=== PATIENT | female | born 1955 | race Caucasian/White ===

== ENCOUNTER 2020-07-31 21:35 | Emergency (ER) | payer OTHER ==
[~2020-07-31] VITALS: Ht 172.7 cm; Wt 72.6 kg
[2020-07-31 22:14] LABS: Source, Urine Clean Catch
[2020-07-31 22:17] LABS: BASOPHILS ABSOLUTE AUTO 0.06 K/mm3 (0.00-0.23); BASOPHILS PERCENT AUTO 1 % (0-2); Bilirubin, Urine Neg (Neg); Blood, Urine 4+ (Neg); EOSINOPHILS ABSOLUTE AUTO 0.32 K/mm3 (0.00-0.68); EOSINOPHILS PERCENT AUTO 4 % (0-6); Glucose Qualitative, Urine Neg (Neg); Hematocrit 39.3 % (33.0-51.0); Hemoglobin 12.9 g/dL (11.5-16.0); IMMATURE GRAN ABSOLUTE AUTO 0.02 K/mm3 (0.00-0.10); IMMATURE GRAN PERCENT AUTO 0 % (0-1); Ketones, Urine Neg (Neg); LYMPHOCYTES ABSOLUTE AUTO 2.68 K/mm3 (0.84-5.20); LYMPHOCYTES PERCENT AUTO 30 % (21-46); Leukocyte Esterase, Urine 1+ (Neg); MONOCYTES ABSOLUTE AUTO 0.84 K/mm3 (0.16-1.47); MONOCYTES PERCENT AUTO 10 % (4-13); Mean Corpuscular HGB 27.7 pg (26.0-34.0); Mean Corpuscular HGB Conc 32.8 g/dL (31.5-36.5); Mean Corpuscular Volume 84 fL (80-100); Mean Platelet Volume 9.4 fL (9.1-12.4); NEUTROPHILS ABSOLUTE AUTO 4.91 K/mm3 (1.96-9.15); NEUTROPHILS PERCENT AUTO 56 % (41-73); Nitrite, Urine Neg (Neg); Platelet Count 284 K/mm3 (150-400); Protein, Urine Neg (Neg); RDW Coefficient Variation 12.3 % (11.7-14.2); RDW Standard Deviation 37.6 fL (35.1-46.3); Red Blood Cell Count 4.66 M/mm3 (3.80-5.20); Urobilinogen, Urine NORM (Normal); White Blood Cell Count 8.83 K/mm3 (4.00-11.30)
[2020-07-31 22:21] LABS: Appearance, Urine Clear (Clear); Color, Urine Yellow (P-Yellow)
[2020-07-31 22:22] LABS: Bacteria Few /hpf; Red Blood Cells, Urine 0-2 /hpf (0-2); Squamous Epithelial Cells Few /hpf (Few)
[2020-07-31 22:36] LABS: Alanine Aminotransfer (ALT/SGP 29 U/L (12-78); Albumin, Blood 4.1 g/dL (3.4-5.0); Albumin/Globulin Ratio 1.4 (0.8-1.8); Alk Phos 96 U/L (50-136); Anion Gap 5 mmol/L (6-16); Aspartate Aminotrans (AST/SGOT 22 U/L (12-37); Bilirubin, Total 0.3 mg/dL (0.1-1.0); Blood Urea Nitrogen 18 mg/dL (8-24); Bun/Creatinine Ratio 21.1 (12.0-20.0); CO2, Blood 27 mmol/L (21-32); Calcium, Blood 9.1 mg/dL (8.5-10.1); Chloride, Blood 109 mmol/L (98-108); Creatinine, Blood 0.86 mg/dL (0.40-1.00); Glomerular Filtration Rate >60 (60-); Glucose, Blood 134 mg/dL (70-99); Potassium, Blood 3.9 mmol/L (3.5-5.5); Sodium, Blood 141 mmol/L (136-145); Total Protein, Blood 7.1 g/dL (6.4-8.2)
[2020-08-01] MEDS ORDERED: XARELTO20 MG PO (00:50)
[2020-08-01] MEDS ORDERED: LISI10 PO (00:50)
[2020-08-01] MEDS ORDERED: ATEN25 PO (00:51)
[2020-08-01] MEDS ORDERED: AMLO10 PO (00:51)
[2020-08-01] MEDS ORDERED: LIDO700A20 TOP (04:05)
[2020-08-01] MEDS ORDERED: ACETAMINOPHEN500 MG PO (04:05)
== END 2020-08-01 04:20 | disposition home or self-care (01) ==
LOC: ER 21:35
PROVIDERS: Physician Assistant
DX: R10.9 Unspecified abdominal pain (principal); Z79.01 Long term (current) use of anticoagulants; Z79.899 Other long term (current) drug therapy
CPT/HCPCS: 36415; 74176; 80053; 81001; 83690; 85025; 87086; 96374; 99284-25; J1885

== ENCOUNTER 2020-08-28 09:43 | Day surgery (SDC) | payer OTHER ==
[~2020-08-28] VITALS: Ht 172 cm; Wt 72.0 kg
[~2020-08-28 09:43] MED LIST: ACETAMINOPHEN500 MG PO; AMLO10 PO; ATEN25 PO; LIDO700A20 TOP; LISI10 PO; XARELTO20 MG PO
[2020-08-28 10:16] LABS: BASOPHILS ABSOLUTE AUTO 0.05 K/mm3 (0.00-0.23); BASOPHILS PERCENT AUTO 1 % (0-2); EOSINOPHILS ABSOLUTE AUTO 0.31 K/mm3 (0.00-0.68); EOSINOPHILS PERCENT AUTO 5 % (0-6); Hematocrit 42.6 % (33.0-51.0); IMMATURE GRAN ABSOLUTE AUTO 0.02 K/mm3 (0.00-0.10); IMMATURE GRAN PERCENT AUTO 0 % (0-1); LYMPHOCYTES ABSOLUTE AUTO 1.59 K/mm3 (0.84-5.20); LYMPHOCYTES PERCENT AUTO 24 % (21-46); MONOCYTES ABSOLUTE AUTO 0.54 K/mm3 (0.16-1.47); MONOCYTES PERCENT AUTO 8 % (4-13); Mean Corpuscular HGB 27.7 pg (26.0-34.0); Mean Corpuscular HGB Conc 32.9 g/dL (31.5-36.5); Mean Corpuscular Volume 84 fL (80-100); Mean Platelet Volume 9.3 fL (9.1-12.4); NEUTROPHILS ABSOLUTE AUTO 4.17 K/mm3 (1.96-9.15); NEUTROPHILS PERCENT AUTO 63 % (41-73); Platelet Count 294 K/mm3 (150-400); RDW Coefficient Variation 12.2 % (11.7-14.2); RDW Standard Deviation 37.4 fL (35.1-46.3); Red Blood Cell Count 5.06 M/mm3 (3.80-5.20); White Blood Cell Count 6.68 K/mm3 (4.00-11.30)
[2020-08-28] MEDS ORDERED: ATOR80 PO (10:18)
[2020-08-28] MEDS ORDERED: Aspir 8181 MG PO (10:18)
[2020-08-28] MEDS ORDERED: Norco 5-325 Ta1 EACH PO (10:19)
[2020-08-28] MEDS ORDERED: PANT40 PO (10:19)
[2020-08-28] MEDS ORDERED: GLIP5 PO (10:19)
[2020-08-28] MEDS ORDERED: TRAM50 PO (10:20)
[2020-08-28 10:27] LABS: International Normalized Ratio 1.03; Prothrombin Time Results 11.1 Sec (9.7-11.5)
[2020-08-28 10:34] LABS: Alanine Aminotransfer (ALT/SGP 38 U/L (12-78); Albumin/Globulin Ratio 1.2 (0.8-1.8); Alk Phos 106 U/L (50-136); Anion Gap 9 mmol/L (6-16); Aspartate Aminotrans (AST/SGOT 19 U/L (12-37); Bilirubin, Total 0.7 mg/dL (0.1-1.0); Blood Urea Nitrogen 20 mg/dL (8-24); Bun/Creatinine Ratio 25.4 (12.0-20.0); CO2, Blood 27 mmol/L (21-32); Chloride, Blood 106 mmol/L (98-108); Creatinine, Blood 0.79 mg/dL (0.40-1.00); Globulin, Blood 3.2 g/dL (2.2-4.0); Glomerular Filtration Rate >60 (60-); Glucose, Blood 144 mg/dL (70-99); Potassium, Blood 3.9 mmol/L (3.5-5.5); Sodium, Blood 142 mmol/L (136-145); Total Protein, Blood 7.2 g/dL (6.4-8.2)
--- NOTE | 2020-08-28 14:56 | NUR ---
PT ASSISTED ON AND OFF BED HURTADO WITH NO COMPLICATIONS. SITE REMAINS STABLE. NO BLEEDING, OOZING OR HEMATOMA NOTED. PT EATING LUNCH AT THIS TIME. ICE PACK PROVIDED TO PT FOR APIN CONTROL AT SITE. PT DENIES ANY OTHER NEEDS AT THIS TIME. VSS.
--- NOTE | 2020-08-28 16:39 | NUR ---
DISCHARGE PT AMBULATED TO RESTROOM AND DRESSED SELF WITH NO COMPLICATIONS. PTS R FEMORAL SITE HAS NO BLEEDING, OOZING OR HEMATOMA NOTED. PT DENIES ANY PAIN. PT STATES HER UNDERSTANDING OF DC AND SITE MANAGEMENT INSTRUCTIONS AND DENIES ANY QUESTIONS OR CONCERNS. IV DCD WITH CATH INTACT. PT TAKEN TO EXIT VIA WHEELCHAIR WHERE AWAITS WITH VEHICLE.
== END 2020-08-28 16:15 | disposition home or self-care (01) ==
LOC: MHTC 09:43
PROVIDERS: Radiology Diagnostic Radiology
DX: K55.1 Chronic vascular disorders of intestine (principal); E11.9 Type 2 diabetes mellitus without complications; I10 Essential (primary) hypertension; E78.5 Hyperlipidemia, unspecified; Z88.0 Allergy status to penicillin; Z88.8 Allergy status to other drugs, medicaments and biological substances; Z86.79 Personal history of other diseases of the circulatory system
CPT/HCPCS: 36245; 36415; 75726; 76937; 80053; 85025; 85610; 99152; 99153; C1760; C1769; C1887; C1894; J1644; J2250; J3010; J7030; J7050; Q9967

== ENCOUNTER 2020-09-25 08:40 | Day surgery (SDC) | payer OTHER ==
[~2020-09-25] VITALS: Ht 172.7 cm; Wt 70.7 kg
[~2020-09-25 08:40] MED LIST changes: +ATOR80 PO; +Aspir 8181 MG PO; +GLIP5 PO; +Norco 5-325 Ta1 EACH PO; +PANT40 PO; +TRAM50 PO
== END 2020-09-25 12:30 | disposition home or self-care (01) ==
LOC: ORSCSDS 08:40
PROVIDERS: Surgery
PROC: 0DBP8ZX Excision of Rectum, Via Natural or Artificial Opening Endoscopic, Diagnostic (ICD-10-PCS; principal; 2020-09-25 11:30)
PROC: 0DB78ZX Excision of Stomach, Pylorus, Via Natural or Artificial Opening Endoscopic, Diagnostic (ICD-10-PCS; principal; 2020-09-25 11:30)
DX: R10.13 Epigastric pain (principal); R10.12 Left upper quadrant pain; K92.1 Melena; R85.613 High grade squamous intraepithelial lesion on cytologic smear of anus (HGSIL); K57.30 Diverticulosis of large intestine without perforation or abscess without bleeding; I10 Essential (primary) hypertension; E11.9 Type 2 diabetes mellitus without complications; Z79.899 Other long term (current) drug therapy; Z79.82 Long term (current) use of aspirin
CPT/HCPCS: 82947; 88305; 88342; J2704; J7120

== ENCOUNTER 2024-01-18 05:59 | Day surgery (SDC) | payer OTHER ==
[~2024-01-18] VITALS: Ht 172.7 cm; Wt 74.1 kg
[2024-01-18] VITALS (16 sets, daily range): BP systolic 116–159; BP diastolic 72–96
[~2024-01-18 05:59] MED LIST changes: +HYDROCODONE PO
[2024-01-18] MEDS ORDERED: Ropivacaine 0.5% HCl/Pf 123.125 MG,EPINEPHrine HCL 0.25 MG,Ketorolac Tromethamine 15 MG... INFIL SCH (06:15)
[2024-01-18] MEDS ORDERED: Lactated Ringer's 1,000 ML IV SCH ×2 (06:15→07:45)
[2024-01-18] MEDS ORDERED: OxyCODONE HCL 10 MG TABCR PO SCH (06:15)
[2024-01-18] MEDS ORDERED: Acetaminophen 500 MG Tab PO SCH ×2 (06:15→08:00)
[2024-01-18] MEDS ORDERED: Chlorhexidine Mouth Care 15 ML UDC MT SCH (06:15)
[2024-01-18] MEDS ORDERED: CeFAZolin Sodium 2,000 MG in NS 100 ML IV SCH ×2 (06:15→15:30)
[2024-01-18] MEDS ORDERED: Tranexamic Acid 100 ML IV SCH (06:15)
--- NOTE | 2024-01-18 07:13 | NUR ---
History, Chart, Medications and Allergies reviewed before start of procedure. Pre-Op teaching done. Pt verbalizes understanding. Patient confirms NPO status and agrees with scheduled surgery. PT BELONGINGS PLACED IN BAG AND UNDER BED. PT SPOUSE LEFT AND STATES HE WILL BE BACK AROUND NOON.
[2024-01-18] MEDS ORDERED: Midazolam HCl 1MG / ML 2ML Vial ONE (07:14)
[2024-01-18] MEDS ORDERED: propofoL 60 ML IV ONE (07:15)
[2024-01-18] MEDS ORDERED: Phenylephrine HCl 100 MCG/ML-NS 10MLSYR (1MG/10ML) ONE ×2 (07:24→08:02)
[2024-01-18] MEDS ORDERED: DiphenhydrAMINE HCL 25 MG Cap PO PRN (07:40)
[2024-01-18] MEDS ORDERED: Promethazine HCl 25 MG Tab PO PRN (07:40)
[2024-01-18] MEDS ORDERED: Prochlorperazine Edisylate 10 mg Vial IV PRN (07:40)
[2024-01-18] MEDS ORDERED: OxyCODONE HCL 5 MG TAB PO PRN ×2 (07:40→07:45)
[2024-01-18] MEDS ORDERED: Magnesium Hydroxide Conc 10 ML UDC PO PRN (07:45)
[2024-01-18] MEDS ORDERED: Bisacodyl 10 MG Supp PR PRN (07:45)
[2024-01-18] MEDS ORDERED: Metoclopramide HCl 5MG / ML 2ML Vial IV PRN (07:45)
[2024-01-18] MEDS ORDERED: HYDROmorphone HCl/Pf 1MG SYR IV PRN (07:50)
[2024-01-18] MEDS ORDERED: Ondansetron HCl 2 MG / ML 2ML Vial IV PRN (07:50)
[2024-01-18] MEDS ORDERED: FLU VACC TS2024-25(6MOS UP)/PF 45 MCG/0.5 ML SYRINGE IM SCH (07:50)
[2024-01-18] MEDS ORDERED: ePHEDrine Sulfate 50 MG/ML 1ML Injection ONE (08:02)
[2024-01-18] MEDS ORDERED: propofoL 40 ML IV ONE (08:07)
[2024-01-18] MEDS ORDERED: AmLODIPine Besylate 5 MG Tab PO SCH (09:00)
[2024-01-18] MEDS ORDERED: Atenolol 25 MG Tab PO SCH (09:00)
[2024-01-18] MEDS ORDERED: Docusate Sodium 100 MG Cap PO SCH (09:00)
[2024-01-18] MEDS ORDERED: Lisinopril 10 MG Tab PO SCH (09:00)
[2024-01-18] MEDS ORDERED: Ketorolac Tromethamine 30mg Vial ONE (09:20)
[2024-01-18] MEDS ORDERED: FentaNYL Citrate 50 MCG/ML 2 ML Injection ONE (09:21)
--- NOTE | 2024-01-18 10:01 | NUR ---
ARRIVAL TO SURGICAL UNIT VIA HOSPITAL BED, ASSESSMENT CHARTED. ALERT, UPBEAT, & PLEASANT. DENIES N/V SO SNACKS & DRINKS GIVEN.
[2024-01-18] MEDS ORDERED: Ketorolac Tromethamine 15mg Vial IV SCH (12:00)
--- NOTE | 2024-01-18 19:18 | NUR ---
SHIFT SUMMARY HAS DONE WELL POST OP. AFTER SPINAL WORE OFF WAS ABLE TO WORK w/ THERAPY. PAIN WELL CONTROLLED. EATING, DRINKING, & VOIDING. PLEASANT & COOPERATIVE.
[2024-01-19 03:44] VITALS: BP 145/90
[2024-01-19 05:06] LABS: BASOPHILS ABSOLUTE AUTO 0.02 K/mm3 (0.00-0.23); BASOPHILS PERCENT AUTO 0 % (0-2); EOSINOPHILS ABSOLUTE AUTO 0.24 K/mm3 (0.00-0.68); EOSINOPHILS PERCENT AUTO 3 % (0-6); Hematocrit 33.6 % (33.0-51.0); Hemoglobin 11.6 g/dL (11.5-16.0); IMMATURE GRAN ABSOLUTE AUTO 0.03 K/mm3 (0.00-0.10); IMMATURE GRAN PERCENT AUTO 0 % (0-1); LYMPHOCYTES ABSOLUTE AUTO 1.55 K/mm3 (0.84-5.20); LYMPHOCYTES PERCENT AUTO 17 % (21-46); MONOCYTES PERCENT AUTO 9 % (4-13); Mean Corpuscular HGB 30.3 pg (26.0-34.0); Mean Corpuscular HGB Conc 34.5 g/dL (31.5-36.5); Mean Corpuscular Volume 88 fL (80-100); Mean Platelet Volume 9.6 fL (9.1-12.4); NEUTROPHILS ABSOLUTE AUTO 6.34 K/mm3 (1.96-9.15); NEUTROPHILS PERCENT AUTO 71 % (41-73); Platelet Count 261 K/mm3 (150-400); RDW Coefficient Variation 12.2 % (11.7-14.2); RDW Standard Deviation 39.4 fL (35.1-46.3); Red Blood Cell Count 3.83 M/mm3 (3.80-5.20); White Blood Cell Count 8.98 K/mm3 (4.00-11.30)
[2024-01-19 05:55] LABS: Bun/Creatinine Ratio 24.9 (12.0-20.0); Creatinine, Blood 0.68 mg/dL (0.40-1.00); Magnesium, Blood 1.6 mg/dL (1.6-2.4); Potassium, Blood 3.9 mmol/L (3.5-5.5)
--- NOTE | 2024-01-19 06:08 | NUR ---
SHIFT SUMMARY POD 1 L GENI. NO ACUTE CHANGES OVERNIGHT. VSS. TOLERATING ORALS. VOIDING. AMBULATES USING FWW c GB & SBA. CLEAR MESH DRESSING C/D/I c MIN SANG DRAINAGE. PT REPORTS PAIN TOLERABLE, MEDICATED PER EMAR. PT DRESSED, RESTING IN CHAIR, POLAR PACK IN USE. CALL LIGHT IN REACH, WILL REPORT TO DAY RN.
[2024-01-19 07:13] VITALS: BP 140/83
[2024-01-19] MEDS ORDERED: Aspirin 81 MG Chew PO SCH (09:00)
[2024-01-19] MEDS ORDERED: ACET500 PO (09:36)
[2024-01-19] MEDS ORDERED: OXYC5 PO (09:37)
[2024-01-19] MEDS ORDERED: ASPI81CH PO (09:37)
--- NOTE | 2024-01-19 10:09 | NUR ---
DISCHARGE EDUCATION PT HAS CLEARED THERAPY. PAIN WELL CONTROLLED. EATING, DRINKING, & VOIDING WELL. POLAR PACK PACKED. WAITING FOR SPOUSE FOR RIDE HOME.
--- NOTE | 2024-01-19 10:37 | NUR ---
ESCORTED OUT VIA WC
== END 2024-01-19 10:09 | disposition home or self-care (01) ==
LOC: ORSCMMR 05:59 → SURS 09:47 → ORSCMMR 14:30
PROVIDERS: Orthopaedic Surgery
PROC: 0SRB0JA Replacement of Left Hip Joint with Synthetic Substitute, Uncemented, Open Approach (ICD-10-PCS; principal; 2024-01-18 07:30)
DX: M16.0 Bilateral primary osteoarthritis of hip (principal); I10 Essential (primary) hypertension; E11.9 Type 2 diabetes mellitus without complications; Z79.899 Other long term (current) drug therapy; E78.5 Hyperlipidemia, unspecified; Z79.84 Long term (current) use of oral hypoglycemic drugs
CPT/HCPCS: 36415; 72170; 80048; 82947; 83735; 85025; 97110; 97116; 97162; 97530; A9270; C1776; J0171; J0690; J0735; J1885; J2250; J2371; J2704; J2795; J3010; J7120

== ENCOUNTER 2024-05-02 11:39 | Day surgery (SDC) | payer OTHER ==
[~2024-05-02] VITALS: Ht 170.2 cm; Wt 71.6 kg
[2024-05-02] VITALS (17 sets, daily range): BP systolic 113–151; BP diastolic 64–92
[~2024-05-02 11:39] MED LIST changes: +ACET500 PO; +ASPI81CH PO; -ATEN25 PO; +ATEN50 PO; +Acetaminophen 500 MG Tab PO SCH; +CeFAZolin Sodium 2,000 MG in NS 100 ML IV SCH; +Chlorhexidine Mouth Care 15 ML UDC MT SCH; +FentaNYL Citrate 50 MCG/ML 2 ML Injection ONE; -LISI10 PO; +LISI5 PO; +Lactated Ringer's 1,000 ML IV SCH; +Mepivacaine MPF 2% Inj 20 ML Vial INJ ONE; +Midazolam HCl 1MG / ML 2ML Vial ONE; +NARCAN4 M1; +OXYC5 PO; +OxyCODONE HCL 10 MG TABCR PO SCH; +Ropivacaine 0.5% HCl/Pf 123.125 MG,EPINEPHrine HCL 0.25 MG,Ketorolac Tromethamine 15 MG... INFIL SCH; +Tranexamic Acid 100 ML IV SCH; +propofoL 40 ML IV ONE
[2024-05-02] MEDS ORDERED: CeFAZolin Sodium 2,000 MG VIAL ONE (11:44)
[2024-05-02] MEDS ORDERED: JARDIANCE25 MG PO (12:21)
--- NOTE | 2024-05-02 12:47 | NUR ---
TIME OUT @ 1228 FOR DINA NERVE BLOCK WITH DR WOOTEN.
[2024-05-02] MEDS ORDERED: Phenylephrine HCl 100 MCG/ML-NS 10MLSYR (1MG/10ML) ONE ×3 (13:13→14:15)
[2024-05-02] MEDS ORDERED: ePHEDrine Sulfate 50 MG/ML 1ML Injection ONE (13:30)
[2024-05-02] MEDS ORDERED: Promethazine HCl 25 MG Tab PO PRN (13:30)
[2024-05-02] MEDS ORDERED: Bisacodyl 10 MG Supp PR PRN (13:30)
[2024-05-02] MEDS ORDERED: FLU VACC TS2024-25(6MOS UP)/PF 45 MCG/0.5 ML SYRINGE IM SCH (13:35)
[2024-05-02] MEDS ORDERED: Magnesium Hydroxide Conc 10 ML UDC PO PRN (13:35)
[2024-05-02] MEDS ORDERED: HYDROmorphone HCl/Pf 1MG SYR IV PRN (13:35)
[2024-05-02] MEDS ORDERED: Lactated Ringer's 1,000 ML IV SCH (13:35)
[2024-05-02] MEDS ORDERED: DiphenhydrAMINE HCL 25 MG Cap PO PRN (13:35)
[2024-05-02] MEDS ORDERED: Metoclopramide HCl 5MG / ML 2ML Vial IV PRN (13:40)
[2024-05-02] MEDS ORDERED: Ondansetron HCl 2 MG / ML 2ML Vial IV PRN (13:40)
[2024-05-02] MEDS ORDERED: OxyCODONE HCL 5 MG TAB PO PRN ×2 (13:40)
[2024-05-02] MEDS ORDERED: Prochlorperazine Edisylate 10 mg Vial IV PRN (13:40)
[2024-05-02] MEDS ORDERED: propofoL 60 ML IV ONE (13:41)
--- NOTE | 2024-05-02 13:44 | NUR ---
05/02/24 Pedrito4 Aminata Roca PRIOR TO ARRIVING IN THE OR, PATIENT RECEIVED DINA NERVE BLOCK OF THE RIGHT SIDE PERFOMRED BY IN THE PREOP SETTING. UPON ARRIVAL TO THE OR, PATIENT RECEIVED A SPINAL NERVE BLOCK PERFORMED BY AT BEDSIDE.
[2024-05-02] MEDS ORDERED: HYDROmorphone HCl/Pf 1MG SYR ONE (15:00)
[2024-05-02] MEDS ORDERED: FentaNYL Citrate 50 MCG/ML 2 ML Injection ONE ×2 (15:01→15:31)
[2024-05-02] MEDS ORDERED: Acetaminophen 500 MG Tab PO SCH (16:00)
[2024-05-02] MEDS ORDERED: Ketorolac Tromethamine 15mg Vial IV SCH (18:00)
--- NOTE | 2024-05-02 19:26 | NUR ---
SHIFT SUMMARY POD0 R GENI, A/OX4, VSS, TOLERATING PO, PAIN MANAGED PER EMAR, IMPULSIVE AND DOESN'T FOLLOW DIRECTIONS WELL BUT SHE IS PLEASANT. SHE TENDS TO FIXATE AND FIDGET WITH THINGS AROUND HER, SHE HAS BEEN ITCHING HER LEFT ELBOW PRIOR TO THE IV BEING PLACED IN HER LAC AND WAS GIVEN BENADRYL FOR IT. SHE WAS ABLE TO VOID BUT LIMITED ABILITY TO AMBULATE. NO ACUTE EVENTS THIS SHIFT, CALL LIGHT IN REACH.
--- NOTE | 2024-05-02 19:30 | NUR ---
SHIFT SUMMARY POD0 R GENI, A/OX4, VSS, TOLERATING PO, VOIDING INDEPENDENTLY, PAIN MANAGED PER EMAR, NO THERAPY TODAY, ABLE TO AMBULATE TO THE BATHROOM WELL BUT TENDS TO GET AHEAD OF HER SELF. NO ACUTE EVENTS THIS SHFIT, CALL SUKUMAR IN REACH.
[2024-05-02] MEDS ORDERED: Docusate Sodium 100 MG Cap PO SCH (21:00)
[2024-05-02] MEDS ORDERED: CeFAZolin Sodium 2,000 MG in NS 100 ML IV SCH (21:00)
[2024-05-03 00:38] VITALS: BP 127/73
[2024-05-03 04:26] VITALS: BP 132/82
[2024-05-03 05:44] LABS: BASOPHILS ABSOLUTE AUTO 0.01 K/mm3 (0.00-0.23); BASOPHILS PERCENT AUTO 0 % (0-2); EOSINOPHILS ABSOLUTE AUTO 0.25 K/mm3 (0.00-0.68); EOSINOPHILS PERCENT AUTO 3 % (0-6); Hematocrit 38.1 % (33.0-51.0); Hemoglobin 12.7 g/dL (11.5-16.0); IMMATURE GRAN ABSOLUTE AUTO 0.02 K/mm3 (0.00-0.10); IMMATURE GRAN PERCENT AUTO 0 % (0-1); LYMPHOCYTES ABSOLUTE AUTO 1.83 K/mm3 (0.84-5.20); LYMPHOCYTES PERCENT AUTO 20 % (21-46); MONOCYTES ABSOLUTE AUTO 0.89 K/mm3 (0.16-1.47); MONOCYTES PERCENT AUTO 10 % (4-13); Mean Corpuscular HGB 28.7 pg (26.0-34.0); Mean Corpuscular HGB Conc 33.3 g/dL (31.5-36.5); Mean Corpuscular Volume 86 fL (80-100); Mean Platelet Volume 9.4 fL (9.1-12.4); NEUTROPHILS ABSOLUTE AUTO 6.14 K/mm3 (1.96-9.15); NEUTROPHILS PERCENT AUTO 67 % (41-73); Platelet Count 239 K/mm3 (150-400); RDW Coefficient Variation 12.2 % (11.7-14.2); RDW Standard Deviation 38.5 fL (35.1-46.3); Red Blood Cell Count 4.43 M/mm3 (3.80-5.20); White Blood Cell Count 9.14 K/mm3 (4.00-11.30)
[2024-05-03 06:41] LABS: Bun/Creatinine Ratio 29.6 (12.0-20.0); Creatinine, Blood 0.57 mg/dL (0.40-1.00); Potassium, Blood 3.8 mmol/L (3.5-5.5)
--- NOTE | 2024-05-03 06:42 | NUR ---
SHIFT SUMMARY PATIENT ALERT AND ORIENTED X4. MEDICATED PER EMAR FOR PAIN. ON ROOM AIR WITH NO SHORTNESS OF BREATH. VITAL SIGNS STABLE. NO ACUTE ISSUES NOTED OVERNIGHT. ALL LIGHT WITHIN REACH.
[2024-05-03] MEDS ORDERED: ACET500 PO (08:48)
[2024-05-03] MEDS ORDERED: OXAYDO5 M1 PO (08:49)
[2024-05-03] MEDS ORDERED: Aspir 8181 MG PO (08:49)
[2024-05-03 08:56] VITALS: BP 121/66
[2024-05-03] MEDS ORDERED: Aspirin 81 MG Chew PO SCH (09:00)
--- NOTE | 2024-05-03 14:10 | NUR ---
DISCHARGE SUMMARY POD1 R GENI, A/OX4, VSS, TOLERATING PO, PAIN WELL MANAGED, WORKED WITH THERAPY, AMBULATES WELL, VOIDING INDEPENDENTLY, PRINEO DRESSING TO R HIP C/D/I. DISCUSSED DISCHARGE INSTRUCTIONS WITH HER INCLUDING HOME CARE, MEDICATIONS, AND FOLLOW UP APPOINTMENTS. IV ACCESS REMOVED DURING DC INSTRUCTIONS. ESCORTED OUT VIA WC TO PRIVATE AUTO TO GO HOME.
== END 2024-05-03 12:18 | disposition home or self-care (01) ==
LOC: ORSCMMR 11:39 → ORD 12:30 → ORSCMMR 12:30 → SURS 15:53 → ORSCMMR 05-03 12:18 → ORD 05-16 12:30
PROVIDERS: Orthopaedic Surgery
PROC: 0SR90JA Replacement of Right Hip Joint with Synthetic Substitute, Uncemented, Open Approach (ICD-10-PCS; principal; 2024-05-02 12:30)
DX: M16.11 Unilateral primary osteoarthritis, right hip (principal); Z96.642 Presence of left artificial hip joint; I10 Essential (primary) hypertension; Z86.73 Personal history of transient ischemic attack (TIA), and cerebral infarction without residual deficits; E11.9 Type 2 diabetes mellitus without complications; E78.5 Hyperlipidemia, unspecified; Z79.899 Other long term (current) drug therapy
CPT/HCPCS: 36415; 72170; 80048; 82947; 83735; 85025; 97110; 97161; A9270; C1713; C1776; J0171; J0670; J0690; J0735; J1171; J1885; J2250; J2371; J2704; J2795; J3010; J7120